=== PATIENT | male | born 1990 | race Caucasian/White ===

== ENCOUNTER 2020-08-11 19:33 | Emergency (ER) | payer BC ==
[~2020-08-11] VITALS: Ht 172.7 cm; Wt 90.9 kg
[2020-08-11 19:39] VITALS: TEMP 97.8
[2020-08-11 20:55] VITALS: BP 140/77; PULSE 66
== END 2020-08-11 20:55 | disposition home or self-care (01) ==
LOC: COL.ER 19:33
DX: S62.336A Displaced fracture of neck of fifth metacarpal bone, right hand, initial encounter for closed fracture (principal); W22.03XA Walked into furniture, initial encounter